=== PATIENT | female | born 1995 | race Caucasian/White ===

== ENCOUNTER 2024-08-04 00:10 | Day surgery (SDC) | payer OTHER, SELFPAY ==
[2024-07-23 15:41] VITALS: BMI 32.8
--- NOTE | 2024-07-23 15:42 | PC.NURSE ---
Report to the Outpatient Waiting Room, entrance under the green pavilion located off [facility], at time _0930 on date _08/04/24 . Planned Procedure Time: _1130 .? Time changes happen often and if your time is changed the preop area will call you the afternoon before. - You and your visitor will be asked to self-screen and do not enter if you have any COVID symptoms. Please call surgeon if you need to reschedule. - A mask is optional within the hospital at this time. Patients may have clear liquids (water, carbonated beverages, clear teas, apple juice) until 3 hours prior to surgery with a maximum of 20 ounces. - No food from midnight until time of surgery and no smoking. This includes no chewing gum, candy or mints. - Infants may have breast milk until 4 hours before surgery, infant formula 6 hours prior to surgery. - Children will be allowed to drink immediately following surgery.? If applicable, please bring a bottle or sippy cup to assist with drinking. Juice, water, soda, and popsicles are readily available.? For infants on formula, please bring formula the day of surgery.? Pacifiers are allowed. Take only the following medications with a SIP of water on the morning of surgery: __Birth Control, Hydroxyzine, and Inhaler if needed. DO NOT STOP ANY OF YOUR OTHER PRESCRIPTION MEDICATIONS PRIOR TO SURGERY EXCEPT THE FOLLOWING Medications to discontinue per physician _Vitamins Date to take last dose__3 days prior Please no make-up, nail urdu, hairspray, perfume, deodorant, or body powder the day of surgery.? No jewelry (including any body piercings) or valuables the day of surgery, leave them at home.? Please take a shower or bath the night before, or the morning of, surgery with an antibacterial soap.? Wear comfortable, loose fitting clothing.? Children are encouraged to wear pajamas. - Jewelry must be removed prior to entering the operating room.? Rings and piercings that are not removed may be cut off. - The hospital will not accept responsibility for valuables.? - Please leave all valuables, including medications, at home the day of surgery. If you are going home after surgery, a licensed regional flatbed truck driver must drive you home.? - NO public transportation without another adult if you receive anesthesia. - We recommend that an adult stay with you for 24 hours following discharge. - We also recommend that you do not drive, make important decision, drink alcoholic beverages, or take any drugs that were not prescribed by your health care provider for at least 24 hours after your discharge time. For Pediatric surgeries, we recommend two adults accompany the child home. Follow any additional instructions given to you from your surgeon. Telephone instructions given to _Yany and asked if any additional questions and then verbalized understanding. Patient advised to call surgeon office or pre surgery nurse liaison [phone] if any additional questions.
[2024-08-04 07:00] VITALS: BP 134/86; PULSE 80; RESP 16; TEMP 36.1; O2SAT 99
--- NOTE | 2024-08-04 07:27 | P.PNAN_ITS ---
Anes - Initial Pre Proc Eval Procedure: Operation Date: 08/04/24 08:30 Proposed Procedures p Loop Electrical Excision Procedure - Jose Vieira MD Date/Time: 08/04/24 07:27 Surgeon: oJse Vieira MD Pre Op Diagnosis: Cervical Intraepithelial Neoplasia Patient Data Age: 28 Gender: F Height: 1.6 m Weight: 83.91 kg Last Vital Signs O2 Del Method Room Air 07/23/24 15:40 Allergies Allergy/AdvReac Type Severity Reaction Status Date / Time No Known Allergies Allergy Verified 07/23/24 15:46 Home Medications ?Medication ?Instructions ?Recorded ?Confirmed ?Type albuterol 90 mcg/actuation aerosol 90 mcg inhalation Q4H PRN SOB 07/23/24 07/23/24 History inhaler hydroxyzine HCl 25 mg tablet 25 mg PO DAILY PRN anxiety 07/23/24 07/23/24 History hyoscyamine sulfate 0.125 mg tablet 0.125 mg PO Q4H PRN abdominal 07/23/24 07/23/24 History discomfort multivitamin 1 tablet PO DAILY 07/23/24 07/23/24 History norethindrone 1 mg-ethinyl 1 tablet PO DAILY 07/23/24 07/23/24 History estradiol 20 mcg (21)-iron 75 mg (7) tablet ([facility]isovi Fe 08/25 ()) Patient hx anesthesia problems: none Family hx anesthesia problems: none Results Review: All pre-operative results and documents have been reviewed as part of the pre- operative evaluation. [facility] Past Medical History Medical History (Updated 08/04/24 @ 07:28 by Tobin Barbour DO) Depression Anxiety IBS (irritable bowel syndrome) Asthma Social History Social History Years smoked: 4 Smoking status: Current some day smoker Tobacco type: e-cigarettes/vaping Substance use type: does not use Living arrangements: with family Spiritual care concerns: No Anes - Eval Final PreProcedure Day of Procedure 08/04/24 07:27 Patient weight: obese Heart: regular rate and rhythm Lungs: clear to auscultation Airway: Mallampati scale class II Neurological: alert and oriented Last oral intake: >/= 8 hours ASA classification: II Emergent: no Anesthetic plan: proceed Anesthesia type and monitoring: general GIVS and standard monitoring Results Review: All pre-operative results and documents have been reviewed as part of the pre- operative evaluation. Informed Consent: The patient's anesthetic plan and its attendant risks and benefits were discussed with the patient/family/POA. Questions were solicited and answers provided to the satisfaction of the patient/family/POA.
[2024-08-04] MEDS: LACTATED RINGERS 1,000 ML 30 ML IV CONT (07:30)
--- NOTE | 2024-08-04 07:56 | PM.IMHP ---
H&P: HPI History of Present Illness Date/Time: 08/04/24 07:56 Chief Complaint: ABDIEL-3 Narrative: Patient is a 28 year old G0 who presents for LEEP indicated for ABDIEL-3. She has a recent pap smear of ASCUS, +HPV, followed by colposcopy that demonstrated ABDIEL-3. Risks and benefits of excisional procedure were discussed with the patient who voices understanding. She denies abdominal pain, nausea, vomiting, or dysuria. Review of Systems Review of Systems: All systems reviewed & are unremarkable except as noted in HPI and below PMFSH Past Medical History Medical History (Updated 08/04/24 @ 08:01 by Jose Vieira MD) Depression Anxiety IBS (irritable bowel syndrome) Asthma Social History Social History Years smoked: 4 Smoking status: Current some day smoker Tobacco type: e-cigarettes/vaping Substance use type: does not use Living arrangements: with family Spiritual care concerns: No Meds Home Medications and Allergies Home Medications ?Medication ?Instructions ?Recorded ?Confirmed ?Type albuterol 90 mcg/actuation aerosol 90 mcg inhalation Q4H PRN SOB 07/23/24 07/23/24 History inhaler hydroxyzine HCl 25 mg tablet 25 mg PO DAILY PRN anxiety 07/23/24 08/04/24 History hyoscyamine sulfate 0.125 mg tablet 0.125 mg PO Q4H PRN abdominal 07/23/24 08/04/24 History discomfort multivitamin 1 tablet PO DAILY 07/23/24 08/04/24 History norethindrone 1 mg-ethinyl 1 tablet PO DAILY 07/23/24 08/04/24 History estradiol 20 mcg (21)-iron 75 mg (7) tablet (Blisovi Fe 08/25 (28)) Allergies Allergy/AdvReac Type Severity Reaction Status Date / Time No Known Allergies Allergy Verified 07/23/24 15:46 Exam Const: General: comfortable and no acute distress Eyes: General: appearance normal, both eyes and all related structures Neck: Neck: supple Resp: Effort & Inspection: normal respiratory effort Cardio: Rate: regular rate Extrem: General: normal to inspection Psych: Mental Status: mental status grossly normal Assessment and Plan Assessment and plan (1) ABDIEL III (cervical intraepithelial neoplasia III): Code(s): D06.9 - Carcinoma in situ of cervix, unspecified Status: Acute Assessment and Plan: - Pap with ASCUS, +HPV; subsequent colposcopy with ABDIEL-3 - risks, benefits, and alternatives to LEEP procedure discussed - patient voices understanding and will proceed with surgery as discussed
--- NOTE | 2024-08-04 08:03 | WPDHPUPDATE1 ---
History and Physical Update Update Date/Time: 08/04/24 08:03 History and Physical has been reviewed, including an updated exam of the patient. There are NO changes in the patient's condition. Risks, benefits, and alternatives have been discussed and questions answered. Patient agrees to proceed with procedure.
[2024-08-04 08:09] LABS: BEDSIDEPREGUCG Negative (Negative)
[2024-08-04] MEDS: ACETAMINOPHEN 500 MG TABLET 1000 MG PO (08:12)
[2024-08-04] MEDS: LIDO 1%/EPINEPHRINE 1:100,000 50 ML VIAL 10 ML INFILTRATE (08:45)
--- NOTE | 2024-08-04 08:51 | W.PM.PROC2 ---
Procedure Note - Detailed Date of Procedure 08/04/24 Pre-op Diagnosis Cervical Intraepithelial Neoplasia Post-op Diagnosis Same Procedure Performed LEEP Surgeon Jose Vieira MD Anesthesia MAC Findings Area of acetowhite epithelium from 5-7 o'clock on the ectocervix Description of Procedure The patient was taken to the operating room with IVFs running. She was then given a general anesthetic without difficulty. She was then placed in the dorsal lithotomy position, using Ronak stirrups.? A time-out procedure was performed and all members of the OR team agreed on the patient and plan. A coated bivalve speculum was placed in the vagina with a smoke evacuator attached. Acetic acid was used to identify the abnormal areas of the cervix. A 10 x 15 mm loop electrode was then used to remove the high grade lesion & surrounding transformation zone.? The LEEP bed was made hemostatic with a 5mm ball cautery.?? Hemostasis was noted.?A stitch was placed at 12 o'clock and 6 o'clock on the specimens.? Patient tolerated the procedure well.? Sponge, lap, needle, and instrument counts were correct X2.? The patient was taken out of the dorsal lithotomy position and awakened from anesthesia. She was then taken to the recovery room in stable condition. Estimated Blood Loss 5 Pathology Yes Complications No immediate complications Condition Stable Disposition Same day
[2024-08-04 08:53] VITALS: BP 136/73; PULSE 97; RESP 16; O2SAT 99
[2024-08-04 09:20] VITALS: BP 116/68; PULSE 47; RESP 16
[2024-08-04 09:50] VITALS: BP 109/74; PULSE 52; RESP 16
== END 2024-08-04 10:05 | disposition home or self-care (01) ==
PROVIDERS: PCP Physician Assistant; Visit Provider Obstetrics & Gynecology
PROC: 0UBC7ZZ Excision of Cervix, Via Natural or Artificial Opening (ICD-10-PCS; CPT 57522; principal; 2024-08-04 08:30)
DX: D06.0 Carcinoma in situ of endocervix (principal); N72 Inflammatory disease of cervix uteri; N88.8 Other specified noninflammatory disorders of cervix uteri; J45.909 Unspecified asthma, uncomplicated; F32.A Depression, unspecified; F41.9 Anxiety disorder, unspecified; K58.9 Irritable bowel syndrome, unspecified; F17.290 Nicotine dependence, other tobacco product, uncomplicated; E66.9 Obesity, unspecified; Z68.31 Body mass index [BMI] 31.0-31.9, adult; Z79.51 Long term (current) use of inhaled steroids
CPT/HCPCS: 57522; 88307; A9270; J1100; J2003; J2004; J2250; J2405; J2704; J3010; J7120

== ENCOUNTER 2024-11-03 14:54 | Outpatient (CLI) | payer OTHER, SELFPAY ==
[2024-11-03 15:51] LABS: Beta HCG Quantitative < 2.39 mIU/ML
--- OUTSIDE RECORDS SUMMARY | 2024-11-03 16:28 | XMS_ITS | Clinical Summary ---
Author Organization [facility] Address [address] [place] [address] Care Team Providers Care Examination Scorer Name Role Phone Unavailable Primary Care Provider Unavailabl e Immunizations Immunization Administration Dates Next Due Covid-19, Mrna, Lnp-s, Pf, 30 Mcg/0.3 Ml Dose (P fizer) 08/15/2021 Social History Tobacco Use Types Packs/Day Years Used Date Smoking Tobacco: Never Assessed Comments Unknown Sex and Gender Information Value Date Recorded Sex Assigned at Not on file Legal Sex Female 8:16 AM CDT Gender Identity Not on file Sexual Orientation Not on file Plan of Treatment Health Maintenance Due Date Last Done Comments Hepatitis C Virus (HCV) Screening 1997 TdaP Immunization 1997 Human Papillomavirus (HPV) Immunization (1 - 3-dose series) 2012 Hepatitis B Immunization (1 of 3 - 19+ 3-dose series) 2016 Influenza Immunization (#1) 2024 SARS-COV-2 Immunization ( season) 2024 08/15/2021, 03/03/2021, 02/10/2021 Respiratory Syncytial Virus (RSV) Immunization (Adult) (1 - 1-dose 75+ series) 2072 Meningococcal Immunization (ACWY) Aged Out No longer eligible b ased on patient's age to complete this topic Pneumococcal Immunization Combined Aged Out No longer eligible b ased on patient's age to complete this topic Rotavirus Immunization Aged Out No lo nger eligible based on patient's age to complete this topic
--- OUTSIDE RECORDS SUMMARY | 2024-11-03 16:29 | XMS_ITS | Data Portability ---
Author Organization [facility] Address [address] [place] [address] Care Team Providers Care Database Manager Name Role Phone NADIRA DOWLING Primary Care Provider [phone] Assessment Encounter Date Assessment Date Assessment LastModified by Organization Details LastModified Time 05/19/2024 05/19/2024 Annual gynecological exam performed. Patient will come back in a year unless there are new symptoms. [email or web address] Not available 05/19/2024 17:46:10 Plan of Treatment Reminders Order Date Submit Date Provider Last Modified By Organization Details Last Modified Time Details Appointments PELVIC PAIN 2024 11:00A M ANNY DODSON MD Not available Not available Not available Lab test, urine 2023 024 [email or web address] [place], [address], [place], [address], 06/16/2024 16:53:54 test, urine 2023 024 [email or web address] [place], [address], [place], [address], 05/19/2024 17:42:38 pap, IG + reflex HPV if ASC-U - if positive HPV run subtyping 16,18/45 2023 024 [facility] (Lab), [address], [place], [address], 05/28/2024 18:05:55 Referral gastroent erologist referral 2020 021 randall Allen MD, [address], [address], [place], [address], 02/23/2022 11:02:42 Procedures None recorded. Surgeries loop electrode excision procedure , surgical (LEEP) (SURG) [address] [facility], [address], [place], [address], 06/27/2024 15:06:33 Imaging None recorded. Medication Orders hydroxyzi ne HCl 25 mg tablet 2023 [facility] #[id number], [address], [place], [id number], 05/19/2024 17:58:19 Aurovela Fe 1-20 (28) 1 mg-20 mcg (21)/75 mg (7) tablet 2023 [facility] #[id number], [address], [place], [id number], 05/19/2024 17:58:18 dicyclomi ne 20 mg tablet [email or web address] [place] [address] [facility][id number], [address], [place], [id number], 05/12/2024 12:54:21 Patient TargetsNo targets recorded. Patient InstructionsNo instructions recorded. Reason for Referral [employer] Referral for Right lower quadrant pain Diarrhea & significant daily random abd pain x 2mos Referring Physician: Mari Palm, CORRESPONDENCE REPRESENTATIVE, Encounter Date: 06/11/2021 Results Created Date Observation Date Name Description Value Unit Range Abnormal Flag Note LastModifiedBy Organization Detail LastModifiedTime 06/13/20 21 06/13/2021 CT/GC AND TRICH OMONA S VAGIN JOSE (RRNA ), SWAB chlamydia trachomatis, PCR Negati ve negati ve Not Available [facility] (Lab) [address] [facility], [place], [address], 06/14/2021 16:30:39 06/13/20 21 06/13/2021 CT/GC AND TRICH OMONA S VAGIN JOSE (RRNA ), SWAB neisseria gonorrhoeae, PCR Negati ve negati ve Not Available [facility] (Lab) [address] [facility], [place], [address], 06/14/2021 16:30:39 06/13/20 21 06/13/2021 CT/GC AND TRICH OMONA S VAGIN JOSE (RRNA ), SWAB trichomonas vaginalis ribosomal RNA (rrna) Negati ve negati ve Not Available [facility] (Lab) [address] [facility], [place], [address], 06/14/2021 16:30:39 05/19/20 24 05/19/2024 IMAGE GUIDE D PAP, REFLE X HPV IF ASCUS ONLY image guided Pap, reflex HPV ASCUS only SEE RESULT S BELOW abnormal CASE REPOR T: Cytol ogy Gynec ologi jeevan Repor t Case: [id number] Autho rilouis g Provi lamine: Miguel madsen, Aria , ANP, PROFESSOR OF EDUCATION Colle cted: 05/19 1659 Order ing Locat ion: [place] Patho logy Recei vikas: 05/20 0943 First Scree n: Leilani Garrett, CT Patho logis t: Radha Curiel MD Speci men: Scremustapha lopezg Pap - Image d, Cervi x STATE MENT OF ADEQU ACY: Satis facto ry for evalu ation Trans forma tion zone compo nent prese nt ----- ----- ----- ----- ----- ----- ----- ----- ----- ----- ----- ----- ----- ----- ----- ----- ----- ---- FINAL DIAGN OSIS: Epith elial Cell Abnor malit y, Squam ous Cell: Atypi jeevan Squam ous Cells of Undet ermin ed Dayna amaral (ASC- US). Elect mary portillo by Radha Curiel MD on 05/26 at 9:50 AM ----- ----- ----- ----- ----- ----- ----- ----- ----- ----- ----- ----- ----- ----- ----- ----- ----- ---- HPV RESUL TS: HPV mRNA E6/E7 : Posit yonny - HPV mRNA Detec thelma HPV GENOT YPE 16 (SIMON) : Not Detec thelma HPV GENOT YPE 18/45 (SIMON) : Not Detec thelma NOTE: This high risk HPV mRNA assay detec ts fourt een high- risk HPV types (16, 18, 31, 33, 35, 39, 45, 51, 52, 56, 58, 59, 66, 68) witho ut diffe renti ation . This assay can diffe renti ate HPV 16 from HPV 18/45 , but does not diffe renti ate betwe en HPV 18 and HPV 45. A negat yonny HPV 16, 18/45 genot ype assay resul t does not exclu de the possi bilit y of cytol ogic abnor malit ies or of futur e or under lying ABDIEL 1, ABDIEL 3 or cance r. COMME NT: This speci men was revie wed by a Cytot echno logis t and/o r Patho logis t (as indic ated in this repor t) after evalu ation using the Thinp rep Imagi ng Syste m. CLINI JEEVAN INFOR MATIO N: Menst rual Statu s: LMP (if appli cable ): Clini jeevan Histo ry/Pr eviou s Pap: Type of Neopl susana (if appli cable ): Miguelinai lindsay michaels Clini jeevan Findi ngs: Other Histo ry: Hormo francisca (if appli cable ): RODRIGO RENDON FOLLO W-UP: Follo w up as sarah nted, based on curre nt guide lines and indiv idual patie nt consi derat ions. Not Available [facility] (Lab) [address], [place], [address], 05/28/2024 18:05:55 05/19/20 24 05/19/2024 pregn joe test, urine HCG negati ve Not Available [place] [address], [place], [address], 05/19/2024 17:12:56 06/16/20 24 06/16/2024 [facility] PATHO LOGY surgical pathology SEE RESULT S BELOW CASE REPOR T: Surgi jeevan Patho logy Repor t Case: [id number] Autho olga weiner Provi lamine: Barbara Doe MD Colle cted: 06/16 1647 Order ing Locat ion: [place] Patho logy Recei vikas: 06/17 0415 Patho logis t: Pricilla Matta MD Speci men: Cervi x, CXBX ----- ----- ----- ----- ----- ----- ----- ----- ----- ----- ----- ----- ----- ----- ----- ----- ----- ---- FINAL DIAGN OSIS: Cervi x, biops y: -High -grad e squam ous intra epith elial lesio n (ABDIEL- 3). Elect mary portillo by Pricilla Matta MD on 06/17 at 12:30 PM ----- ----- ----- ----- ----- ----- ----- ----- ----- ----- ----- ----- ----- ----- ----- ----- ----- ---- CLINI JEEVAN INFOR MATIO N: Human papil lomav irus MICRO SCOPI C DESCR IPTIO N: A micro scopi c exami natio n was perfo rmed. GROSS DESCR IPTIO N: A. Cervi x. The speci men is label ed with the patie nt's name and demog raphi cs only. Recei vikas in forma candice are 3 fragm ents of vazquez tissu e aggre gatin g 0.4 x 0.3 x 0.2 cm. It is submi tted all in casse tte A1. Gross ed by Gary Verduzco on Not Available [facility] (Lab) [address], [place], [address], 06/17/2024 13:35:49 06/16/20 24 06/16/2024 pregn joe test, urine HCG negati ve Not Available [place] [address], [place], [address], 06/16/2024 16:53:46 Result Notes None recorded. Problems Name Problem SNOMED Code Status Onset Date Resolution Date Notes Provider Name and Address Organization Details Recorded Time SNOMED CT Concept Completed 201506/09/2021 Encounte r for routine pellet post inspector exam w/o abnormal finding; Recorded Elsewher e: No Locat ion: [facility] S ource: EHR Panel Builder tyrese: N Danisha ce ID: 0001 Rommel lable Time: 11:30:00 AM Betty flor [facility] 1 10:23:[address] Concept Completed 201706/09/2021 Encntr for general adult medical exam w/o abnormal findings ;Recorde d Elsewher e: No Locat ion: [facility] S ource: EHR Panel Builder tyrese: N Danisha ce ID: 0001 Rommel lable Time: 02:45:00 PM Betty flor [facility] 1 10:23:04 Breast lump [id number] Completed 201806/09/2021 Lump in breast;R ecorded Elsewher e: No [facility]: EHR Panel Builder tyrese: N Practi ce ID: 0001 Rommel lable Time: 08:30:00 AM Betty Kangmaximilian flor [facility] 10:23:00 Educatio n Completed 201306/09/2021 Family planning ;Recorde d Elsewher e: No Locat ion: [facility] S ource: EHR Panel Builder tyrese: N Practi ce ID: 0001 Rommel lable Time: 03:00:00 PM Betty Kangmaximilian flor [facility] 10:23:02 Body mass index 30+ - obesity [id number] Completed 201706/09/2021 Body mass index (BMI) 34.0-34. 9, adult;Re corded Elsewher e: No Locat ion: [facility] S ource: EHR Panel Builder tyrese: N Practi ce ID: 0001 Rommel lable Time: 02:45:00 PM Betty Kangmaximilian flor [facility] 10:22:58 Problem Notes None recorded. Procedures Surgical History Date Name Laterality Status Provider Name and Address Organization Details Recorded Time 08/04/20 24 LEEP completed Belem Doan [facility] 08/18/2024 17:16:06 06/16/20 24 Colposcopy completed Jose G Doe MD [address], [place], [address], [facility] 06/16/2024 17:37:36 06/16/20 24 Colposcopy completed Haleigh Freed [facility] 06/16/2024 16:52:43 06/16/20 24 Colposcopy completed Haleigh Freed [facility] 06/16/2024 16:52:53 05/19/20 24 Date of Last Pap Smear completed Haleigh Freed [facility] 06/16/2024 16:37:42 06/30/20 19 Date of Last Mammogram completed Betty Kang [facility] 06/09/2021 11:10:23 08/06/19 19 Tonsillectomy completed Betty Kang [facility] 06/11/2021 10:49:30 Imaging Results None recorded. Procedure Notes None recorded. Medical Equipment None Reported. Allergies Allergen ID Allergen Name Allergen Category Reaction Reaction Severity Criticality Documentation Date Start Date Code Code System Note Provider Name and Address Organization Details Recorded Time 37599 Product containin g penicilli n (product) medicatio n Not available Not available Not available 07/23/2020 02317 8001 SNOMED Comme nt: [facility]; Not Available [facility] 0 14:24:36 41562 buspirone medicatio n Not available Not available Not available 05/19/2024 1827 RxNorm react ion- panic k attac ks Wendi Graves basia, [facility] 4 17:00:54 Medications Name Sig Start Date Stop Date Status Note LastModified by Organization Details LastModified Time doxycycli ne hyclate 100 mg capsule 05/19 completed Not Available Not Available Not Available ibuprofen 800 mg tablet TAKE 1 TABLET BY MOUTH THREE TIMES DAILY NEEDED active Not Available Not Available No t Available Adderall 5 mg tablet take 1 tablet by oral route 2 times every day before breakfas t and at noon 06/11 completed Prescrib ed Elsewher e: Yes Loca tion: [facility] M odify By: prema brandt DateTime : 06/12/20 14 03:00:00 PM Not Available Not Available Not Available famotidin e 40 mg tablet active Not Available Not Available Not Available prednison e 20 mg tablet TAKE 2 TABLETS BY MOUTH DAILY FOR 5 DAYS 05/19 completed Not Available Not Available Not Available dicyclomi ne 20 mg tablet Take 1 tablet PO QID for max of 14 days. Stop medicati on if no improvem ent after 24-48hrs of use. 05/12 completed Not Available Not Available Not Available amitripty line 10 mg tablet take 1 tablet by oral route 3 times every day 02/12 completed Prescrib ed Elsewher e: Yes [facility] od[facility] By: [email or web address] z Encoun ter DateTime : 06/12/20 14 03:00:00 PM Not Available Not Available Not Available pantopraz ole 40 mg tablet,de layed release active Not Available Not Available Not Available hyoscyami ne sulfate 0.125 mg tablet active Not Available Not Available Not Available hydroxyzi ne HCl 25 mg tablet TAKE 1 TABLET BY MOUTH THREE TIMES DAILY active Not Available Not Available No t Available methylpre dnisolone 4 mg tablets in a dose pack active Not Available Not Available Not Available albuterol sulfate HFA 90 mcg/actua tion aerosol inhaler INHALE 1 PUFF BY MOUTH EVERY 4 HOURS NEEDED FOR WHEEZING FOR 7 DAYS 06/23 completed Not Available Not Available Not Available cefdinir 300 mg capsule TAKE 1 CAPSULE BY MOUTH EVERY 12 HOURS FOR 10 DAYS 05/19 completed Not Available Not Available Not Available Microgest in 08/25 (21) 1 mg-20 mcg tablet take 1 tablet by oral route every day 02/25 completed Prescrib ed Elsewher e: No Locat ion: [facility] odify By: arely borja DateTime : 12/31/19 16 11:30:00 AM Not Available Not Available Not Available Blisovi Fe 08/25 (28) 1 mg-20 mcg (21)/75 mg (7) tablet TAKE 1 TABLET BY MOUTH EVERY DAY 2024 active Not Available Not Available Not Avai lable Vitals Date Recorded Body height Body mass index (BMI) Body weight Provider Name and Address Organization Details Last Updated DateTime 06/11/2021 160.02 cm 37.4 kg/m2 31146.99 g Betty Kang [place] - [facility] 06/11/2021 10:47:37 Date Recorded Systolic blood pressure Diastolic blood pressure Provider Name and Address Organization Details Last Updated DateTime 06/11/2021 128 mm[Hg] 80 mm[Hg] Mari Palm, [facility]- [address], [place], [address], [facility] 06/11/2021 13:52:09 Date Recorded Body height Body mass index (BMI) Body weight Systolic blood pressure Diastolic blood pressure Provider Name and Address Organization Details Last Updated DateTime 05/19/2024 160.02 cm 34.9 kg/m2 37780.42 g 130 mm[Hg] 85 mm[Hg] Wendi Arreagaton [facility] 4 16:58:18 Date Recorded Body height Body mass index (BMI) Body weight Systolic blood pressure Diastolic blood pressure Provider Name and Address Organization Details Last Updated DateTime 06/16/2024 160.02 cm 34.9 kg/m2 60075.7 g 122 mm[Hg] 84 mm[Hg] Haleigh Freed [facility] 4 16:52:18 Date Recorded Body height Body mass index (BMI) Body weight Systolic blood pressure Diastolic blood pressure Provider Name and Address Organization Details Last Updated DateTime 06/23/2024 160.02 cm 35.3 kg/m2 30945.88 g 134 mm[Hg] 84 mm[Hg] Belem Doan [facility] 4 16:35:58 Date Recorded Body height Body mass index (BMI) Body weight Systolic blood pressure Diastolic blood pressure Provider Name and Address Organization Details Last Updated DateTime 08/18/2024 160.02 cm 31.4 kg/m2 90426.85 g 133 mm[Hg] 82 mm[Hg] Belem Doan [facility] 5 17:14:27 Social History Question Answer Notes LastModified by Organizat ion Details LastModified Time Tobacco Smoking Status Current Some Day Smoker Betty flor, [facility] 06/11/2021 10:49:15 What Is Your Level Of Alcohol Consumption? Occasional [email or web address] Information not available 06/11/2021 If You Are , What Was Your Level Of Alcohol Consumption Prior To ? None [email or web address] Information not available 06/11/2021 Are You Blind Or Do You Have Difficulty Seeing? No Information not available 06/11/2021 What Is Your Level Of Caffeine Consumption? Occasional [email or web address] Information not available 06/11/2021 How Much Tobacco Do You Chew? None [email or web address] Information not available 05/19/2024 In The 14 Days Before Symptom Onset, Have You Had Close Contact With A Laboratory-confir med COVID-19 While That Case Was Ill? No [email or web address] Information not available 06/11/2021 In The 14 Days Before Symptom Onset, Have You Had Close Contact With A Person Who Is Under Investigation For COVID-19 While That Person Was Ill? No [email or web address] Information not available 06/11/2021 Have You Been To An Area Known To Be High Risk For COVID-19? No [email or web address] Information not available 06/11/2021 Are You Deaf Or Do You Have Serious Difficulty Hearing? No [email or web address] Information not available 06/11/2021 What Type Of Diet Are You Following? REGULAR Information not available 06/11/2021 What Is The Highest Grade Or Level Of School You Have Completed Or The Highest Degree You Have Received? 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 No [email or web address] Information not available 05/19/2024 Do You Use Protection During Sex? No [email or web address] Information not available 05/19/2024 Do You Use Your Seat Belt Or Car Seat Routinely? Yes Information not available 06/11/2021 Do You Have Smoke And Carbon Monoxide Detectors In Your Home? Yes [email or web address] Information not available 06/11/2021 How Much Tobacco Do You Smoke? No Information not available 05/19/2024 Do You Feel Stressed (tense, Restless, Nervous, Or Anxious, Or Unable To Sleep At Night)? [id number] [email or web address] Information not available 05/19/2024 Do You Use Any Illicit Or Recreational Drugs? No [email or web address] Information not available 06/11/2021 Do You Use Sunscreen Routinely? Yes [email or web address] Information not available 06/11/2021 Has Tobacco Cessation Counseling Been Provided? No Information not available 06/11/2021 Have You Used IV Drugs? No [email or web address] Information not available 05/19/2024 Do You Or Have You Ever Used Any Other Forms Of Tobacco Or Nicotine? No [email or web address] Information not available 06/11/2021 Sex: Unknown Functional Status Question Answer Note LastModified by Organizat ion Details LastModified Time Are you able to walk? YESWOREST [email or web address] Information not available 06/11/2021 What is your exercise level? Occasional [email or web address] Information not available 06/11/2021 Mental Status None recorded. Family History Relationship Description Onset Age of this Age Resolved Age Notes LastModified by Organization Details LastModified Time Sister Asthma Not available 06/09/2021 11:12:20 Father Asthma [email or web address] Not available 06/09/2021 11:12:20 Medical History Condition Response Allergies (Food, seasonal, environmental ) Y Other N Breast Cancer N Drug/Latex Allergies/Reactions Y Blood Transfusion N Lung Disease N Dermatologic Disorders N Defects or Inherited Disease N Breast Problem Y Gestational Diabetes N Hematologic disorders N Anesthesia Complications N History of STI Y Deep Vein Thrombosis N Polycystic ovary syndrome N Anxiety Disorder Y Autoimmune disease N Arthritis N Infertility N Polyps N Acid Reflux (GERD) N History of abnormal pap N Cancer N Stroke N Varicosities N Neurologic/Epilepsy Y Endometriosis N High Cholesterol N Headaches Y Fibromyalgia N Kidney Disease N Heart Problems N Kidney or Bladder Problems N Thyroid Problems N GI Problems N Eating Disorder N Anemia N Art (IVF or FET) N Psychiatric Illness Y Ovarian Cancer N Diabetes N Pulmonary (TB, Asthma) N Hepatitis/Liver Disease N No Past Medical History N Eczema N Urinary Tract Infection N Abuse/Domestic Violence N Asthma Y Trauma/Violence N Depression/ depression Y Heart Disease N Pre-Eclampsia N Hypertension N Osteoporosis N Thrombophilias N Gynecological History Statement/Question Response Abnormal Pap N Date of Last Mammogram 06/30/2019 Date of LMP 07/28/2024 N Was last menstrual period normal N STIs/STDs N HPV Vaccine Y Colposcopy 06/16/2024 Duration of Flow (days) 5 Current Control Method BCPs Are cycles usually normal Y Frequency of Cycle (Q days) 30 Sexually Active? Y Menses Monthly Y Age of first menstrual cycle 15 Date of Last Pap Smear 05/19/2024 Sexual Problems? N LMP Definite N Obstetrics History GPAL:G 0 P 0 0 0 0 Type Value Living 0 Total 0 Past Encounters Encounter ID Performer Location Encounter Start Date Encounter Closed Date Diagnosis/Indication Diagnosis SNOMED-CT Code Diagnosis ICD10 Code Diagnosis Note [id number] Mari Palm [facility] [address] [address] 06/11/2021 10:34:14 06/13/2021 10:40:25 Right lower quadrant pain 908261907 R10.31 R10.9 Today we have discussed that this issue on exam & after talking with patient is primarily GI related.He r CT only states that she has some enlarged lymph nodes on right near psoas but everything else is WNL. I have recommende d the following: OTC Immodium (Loperamid e) for loose stools (as long as no fever).Tri al of Gilles to see if this helps stomach pain & loose stools (stop medication if not seeing some improvemen t after 2 days).See PCP while waiting for GI referral.I f want a new PCP see Naila Sawant [facility] in [place], [place].GI referral started. Patient is to contact office or go to nearest ED/Urgent care if fever >/= 100.1, pain, excessive bleeding, unusual drainage or swelling in area of concern; or experienci ng worsening sx's or new onset of concerning sx's. Understand ing verbalized . All questions answered to patient satisfacti on. Time spent in visit is a total of 32 mins with at least 50% of visit consisting of counseling and review of plan of care. Additional precaution mark measures were taken to minimize potential exposure to the Covid-19 virus during this patient s visit, including available hand bacon stringer upon arrive, temperatur e check and being asked a series of screening questions. All staff wore face coverings during this encounter, as well as provided additional cleaning and sanitizing of all surfaces, including countertop s, pens, chairs, door handles, light switches, etc, prior to and following the patient s visit. [id number] ARIA SABILLON NP [place] [address] [address] 05/19/2024 16:48:09 05/20/2024 09:20:14 Gynecologic examination 33734209 Z01.419 Annual gynecologi jeevan exam performed. Patient will come back in a year unless there are new symptoms. Suggest Calcium with Vitamin D if not eating in diet. Patient advised to get annual flu shot. Recommend yearly physicals and perform monthly breast exams. Genetic testing is available for patients with family history of cancer. Engage in safe sexual practices, use condoms. Encouraged to have daily exercise. Avoid tobacco and illicit drugs, moderation of alcohol. If BMI greater than 25 dietary consult advised. If you have any questions please call or email. mammogram- n/a colon cancer screening - Pt to followup w/ GI specialist DEXA scan- n/a Pap smear- collected today. If WNL, q3-5 years per ASCCP guidelines . laboratory evaluation - PCP Contracept ion care management [id number] Z30.9 Patient doing well on OCPs. Patient to continue taking as prescribed , refills given. Risks/bene fits discussed. Anxiety 83712176 F41.9 Discussed importance of anxiety management .Rx Hydroxyzin e 25 mg PO TID PRN for anxiety. Patient to f/u in one month for medication check and to evaluate symptoms. Epigastric pain 63906784 R10.13 Discussed potential differenti al diagnoses. Recommende d that patient contact GI specialist and PCP to report symptoms and for further testing. Instructed patient to call office if unable to get appt with current GI doctor as a new referral can be made.Recom mended BRAT diet, small and frequent meals, and staying hydrated. Patient can take OTC immodium for diarrhea if needed.Pat ient is to contact office or go to nearest ED/Urgent care if fever >/= 100.1, pain, excessive bleeding, severe pain; or experienci ng worsening sx's or new onset of concerning sx's. Understand ing verbalized . All questions answered to patient satisfacti on. [id number] Jose G Doe MD [place] [address] [address] 06/16/2024 16:30:41 06/17/2024 16:41:31 Screening procedure [id number] Z13.9 Dysplasia of cervix 7339 1008 N87.9 28-year-ol d female who presented for colposcopi c examinatio n. Apparent cervical dysplasia. Biopsies taken. Satisfacto ry exam. Significan t amount of dysplasia on the anterior lip of the cervix. 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 - ASCU, HPV+ pap followed by ABDIEL-3 pap smear- no hx of abnormal pap smears- significan t amount of dysplasia on anterior lip of cervix per colpo note- recommend LEEP due to advanced dysplasia- discussed risks of surgery, including bleeding, infection, and injury to adjacent structures - discussed risks in s/p LEEP and early cervical length monitoring - patient voices understand ing, would like to undergo [place] in [place] [id number] ANNY DODSON MD [place] [address] [address] 08/18/2024 16:39:26 08/20/2024 13:31:26 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 - s/p LEEP 08/04- pathology demonstrat es ABDIEL-3 completely excised, small area of ABDIEL-1 as well excised- surgical margins negative- recommend repeat pap in 6 months- ok to d/c precaution s History of loop electrosurgical excision procedure [id number] Z98.890 Health Concerns Section Related Observation LastModified by Organization Detai ls LastModified Time None Recorded Concern Status LastModified by Organization Details LastModified Time None Recorded Advance Directives Directive None Recorded Payers Encounter Date Sequence Insurance Name Policy Number Policy Walden Covered Member ID Walden Member ID Guarantor Name 06/11/2021 1 [facility] [id number] Yany Hailee [employer] [id number] [place] [employer] 05/19/2024 1 [facility] [id number] Yany Hailee [employer] [id number] [place] [employer] 06/16/2024 1 [facility] [id number] Yany M [employer] [id number] [place] [employer] 06/23/2024 1 [facility] [id number] Yany Stephen ppert [id number] [employer]any [employer] 08/18/2024 1 [facility] [id number] Yany Stephen [employer] [id number] [facility] Date Note Type Note Provider Name and Address Organization Details Recorded Time 06/11/2021 text/html [facility] [place], [place] Issues started about 2mos ago but have progressively worsened.Now having abdominal pains & continues to have issues with diarrhea & frequent BM.Thought it might be IBS at first but unsure at this point.Had Covid a year ago & recovered wellHad vaccine in the summer & felt fine up until now.Stomach pain is very random.Has tried Peptobismal, ibuprofen, tylenol, resting when pain presents.Neg nausea/V/F/C.Neg heart burn.++Abd bloating at times++ flatus but neg belching.Neg for changes in appetite & does not seem to have any dietary triggers Diarrhea issues started about 2mos ago.Was having VERY loose stools up to 6-7x a dayLots of BloatingAbd pain suddenly came on over the last week.Sharp stabbing and also crampy right sided pain (still present but random & less intense).Pain happened again 05/20 11am to 10pmWalk talk, teach from chairContinued to next day Sunday but not as severe.Seen at Urgent care who told her if sx's continued to go to ED.Went to ED since pain got worse ([facility])Had CT/LabsWas told CT showed, Enlarged lymph nodes right side (seen on previous CT she had had previously). Sx's today:Intermittent low right sided pain continues.Bowel movements 5x a day at present time, more formed but still frequent. Menstrual cycles.Regular monthly with no changes since this issue started.Dysmenorrhea x 1-2 daysLasting 4-5 daysModerate to progressively class a lineman flowOnce a monthNeg Dyspareunia : neg urinary sx's Mari Palm, [facility] [address], [place], [address], [facility] 06/11/2021 14:04:31 05/19/2024 text/html Annual GYNReport ed bypatient.Menstrual cycle:Normal menses Urinary symptoms:No hematuria; No incontinence Vulva:No genital lesion Vagina:Normal vaginal discharge Breast:No breast pain; No breast lump; No nipple discharge Current Contraception:Satisf ied with current contraception; Oral contraceptives Sexual complaints:No sexual complaints; No pain during intercourse; Normal libido Menopausal Symptoms:No menopausal symptoms; Normal vaginal lubrication Psychological symptoms:No depression;Anxiety Preventive measures:Encourage self breast examination; Encourage regular exercise; Encourage no tobacco use; Encourage regular mammograms starting age 40 Patient presents for well woman exam. Cycles monthly, doing well on oral BC pills. Patient does report increased frequency of achy epigastric/generaliz ed abdominal pain, nausea, and loss of appetite x one month. Patient states that she lost 10 lbs in one month due to inability to finish food. Patient states that she has nausea both with and without food. Patient reports intermittent diarrhea. Patient states that the nausea is worse due to the anxiety it causes when she thinks she may vomit. Patient states that she has been to a GI specialist in the past for abdominal pain, had endoscopies and colonoscopies that were WNL. Patient had testing for autoimmune diseases, such as celiac disease, that was negative. Patient denies fever, sx, or pelvic pain. Patient states that she feels better when eating a low FODMAP diet. Patient denies radiation of pain. Patient has appointment with PCP scheduled. Patient states that she last saw her GI doctor in 2022. Patient reports increased anxiety due to her health concerns. ARIA SABILLON NP [address], [place], [address], [facility] 05/19/2024 19:35:21 06/16/2024 text/html 28-year-old cris douglass with abnormal Pap smear presents for colposcopic examination. The procedure was explained to the patient in detail. She understands the procedure. She understands the risks, benefits, and alternatives. She has completed the informed consent process and is ready to proceed. Jose G Doe MD [address], [place], [address], [facility] 06/16/2024 17:38:35 06/23/2024 text/html Patient presents for med check and to discuss LEEP. Was started on hydroxyzine for GI issues (stomach pain and nausea) as well as anxiety. No side effects. Was drowsy at first and now is improved. Patient also presents for discussion of ABDIEL-3. 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 No hx of abnormal pap smears. Planning in the near future. ANNY DODSON MD [address], [place], [address], [facility] 06/23/2024 23:46:05 08/18/2024 text/html S/p LEEP 08/04 f or ABDIEL-3 on colposcopy. Patient doing well, no complaints. Pain resolved. Bleeding resolved. No abnormal discharge. ANNY DODSON MD [address], [place], [address], [facility] 08/18/2024 23:46:16 OBGyn Episode No OBEpisode recorded.
== END 2024-11-03 14:55 | disposition home or self-care (01) ==
LOC: ANHLAB 14:57
PROVIDERS: PCP Physician Assistant; Visit Provider Obstetrics & Gynecology
DX: N91.2 Amenorrhea, unspecified (principal)
CPT/HCPCS: 36415; 84702